=== PATIENT | female | born 1950 | race Caucasian/White ===

== ENCOUNTER 2021-08-27 09:30 | Day surgery (SDC) | payer OTHER, BC ==
[2021-08-25 16:02] VITALS: BMI 36.2
[2021-08-27] MEDS: CIPROFLOXACIN 0.3% EYE DROPS 5 ML BOTTLE ONE ×3 (10:55→11:05)
[2021-08-27] MEDS: CYCLOPENTOLATE 2% OPHTH SOLN 2 ML BOTTLE ONE ×3 (10:55→11:05)
[2021-08-27] MEDS: TROPICAMIDE 1% OPHTH SOLN 15 ML BOTTLE ONE ×3 (10:55→11:05)
[2021-08-27] MEDS: PHENYLEPHRINE 2.5% OPHTH SOLN 15 ML BOTTLE ONE ×3 (10:55→11:05)
[2021-08-27] MEDS ORDERED: MIDAZOLAM HCL 2 MG/2 ML SINGLE DOSE VIAL ONE (11:46)
[2021-08-27] MEDS ORDERED: LIDOCAINE 1% P/F 10 MG/ML VIAL ONE (11:51)
[2021-08-27] MEDS ORDERED: TETRACAINE 0.5% OPHTH SOLN 2 ML BOTTLE ONE (11:51)
[2021-08-27] MEDS ORDERED: BSS (NA/CA/MG/K) BALANCED SALT SOLUTION OPHTH SOLN 15 ML BOTTLE ONE (11:51)
[2021-08-27] MEDS ORDERED: CARBACHOL 0.01% INTRA-OCULAR 1.5 ML VIAL ONE (11:52)
[2021-08-27] MEDS ORDERED: NEO/POLYMYX B SULF/DEXAMETH OPHTHALMIC 5ML BOTTLE ONE (11:52)
[2021-08-27] MEDS ORDERED: PHENYLEPHRINE/KETOROLAC 4 ML VIAL IO ONE (11:56)
[2021-08-27 13:06] VITALS: TEMP 97.8
[2021-08-27 13:08] VITALS: BP 135/64; PULSE 65
== END 2021-08-27 13:05 | disposition home or self-care (01) ==
LOC: FASU 09:30
PROVIDERS: ATTEND Ophthalmology
PROC: 08RK3JZ Replacement of Left Lens with Synthetic Substitute, Percutaneous Approach (ICD-10-PCS; principal; 2021-08-27 11:00)
DX: H26.8 Other specified cataract (principal)
CPT/HCPCS: J1097

== ENCOUNTER 2021-10-01 08:08 | Day surgery (SDC) | payer OTHER, BC ==
[2021-09-26 12:58] VITALS: BMI 36.2
[2021-10-01] MEDS: PHENYLEPHRINE 2.5% OPHTH SOLN 15 ML BOTTLE ONE ×3 (08:20→08:31)
[2021-10-01] MEDS: TROPICAMIDE 1% OPHTH SOLN 15 ML BOTTLE ONE ×3 (08:20→08:31)
[2021-10-01] MEDS: CYCLOPENTOLATE 2% OPHTH SOLN 2 ML BOTTLE ONE ×3 (08:20→08:31)
[2021-10-01] MEDS: CIPROFLOXACIN 0.3% EYE DROPS 5 ML BOTTLE ONE ×3 (08:20→08:31)
[2021-10-01 08:37] VITALS: TEMP 97.8
[2021-10-01] MEDS ORDERED: NEO/POLYMYX B SULF/DEXAMETH OPHTHALMIC 5ML BOTTLE ONE (08:56)
[2021-10-01] MEDS ORDERED: TETRACAINE 0.5% OPHTH SOLN 2 ML BOTTLE ONE (08:56)
[2021-10-01] MEDS ORDERED: CARBACHOL 0.01% INTRA-OCULAR 1.5 ML VIAL ONE (08:56)
[2021-10-01] MEDS ORDERED: LIDOCAINE 1% P/F 10 MG/ML VIAL ONE (08:56)
[2021-10-01] MEDS ORDERED: BSS (NA/CA/MG/K) BALANCED SALT SOLUTION OPHTH SOLN 15 ML BOTTLE ONE (08:56)
[2021-10-01] MEDS ORDERED: MIDAZOLAM HCL 2 MG/2 ML SINGLE DOSE VIAL ONE (10:01)
[2021-10-01 11:05] VITALS: BP 121/71; PULSE 65
== END 2021-10-01 11:10 | disposition home or self-care (01) ==
LOC: FASU 08:08
PROVIDERS: ATTEND Ophthalmology
PROC: 08RJ3JZ Replacement of Right Lens with Synthetic Substitute, Percutaneous Approach (ICD-10-PCS; principal; 2021-10-01 10:16)
DX: H26.8 Other specified cataract (principal)